=== PATIENT | female | born 1990 | race Caucasian/White ===

== ENCOUNTER → 2023-03-15 | Outpatient (REF) | LOC: M EMP 11:21 | PROVIDERS: ATTEND Family Medicine | DX: Z11.52 Encounter for screening for COVID-19 (principal) ==

== ENCOUNTER → 2023-05-08 | Outpatient (CLI) | payer OTHER ==
[2023-05-08 12:50] LABS: INR 3.23; PROTHROMBIN TIME 31.8 SECONDS (12.5-14.5)
== END ==
LOC: M LAB 12:07
PROVIDERS: ATTEND Family Medicine
DX: D68.52 Prothrombin gene mutation (principal)

== ENCOUNTER → 2023-05-17 | Outpatient (CLI) | payer OTHER ==
[2023-05-17 13:54] LABS: INR 2.75; PROTHROMBIN TIME 28.1 SECONDS (12.5-14.5)
== END ==
LOC: M LAB 13:17
PROVIDERS: ATTEND Internal Medicine
DX: D68.52 Prothrombin gene mutation (principal)